=== PATIENT | female | born 1975 | race Caucasian/White ===

== ENCOUNTER 2024-07-04 10:28 | Day surgery (SDC) | payer BC, MEDICARE ==
[2024-07-01 13:42] VITALS: BMI 31.2
[2024-07-04 13:39] VITALS: TEMP 97.2
[2024-07-04 13:44] VITALS: BP 140/72; PULSE 79; RESP 19
== END 2024-07-04 17:12 | disposition home or self-care (01) ==
LOC: FASU-ENDO 10:28
PROVIDERS: ATTEND Internal Medicine Gastroenterology
PROC: 0DB98ZX Excision of Duodenum, Via Natural or Artificial Opening Endoscopic, Diagnostic (ICD-10-PCS; 2024-07-04)
PROC: 0DB78ZX Excision of Stomach, Pylorus, Via Natural or Artificial Opening Endoscopic, Diagnostic (ICD-10-PCS; 2024-07-04)
PROC: 0DB68ZX Excision of Stomach, Via Natural or Artificial Opening Endoscopic, Diagnostic (ICD-10-PCS; 2024-07-04)
PROC: 0DB48ZX Excision of Esophagogastric Junction, Via Natural or Artificial Opening Endoscopic, Diagnostic (ICD-10-PCS; 2024-07-04)
PROC: 0DJD8ZZ Inspection of Lower Intestinal Tract, Via Natural or Artificial Opening Endoscopic (ICD-10-PCS; principal; 2024-07-04 12:01)
DX: Z12.11 Encounter for screening for malignant neoplasm of colon (principal); K29.50 Unspecified chronic gastritis without bleeding; K21.00 Gastro-esophageal reflux disease with esophagitis, without bleeding; K64.0 First degree hemorrhoids; K64.8 Other hemorrhoids
CPT/HCPCS: 81025; 88305-TC; 88342-TC